=== PATIENT | female | born 2000 | race Caucasian/White ===

== ENCOUNTER 2019-09-10 02:25 | Emergency (ER) | payer OTHER, SELFPAY ==
[2019-09-10 02:34] VITALS: BP 143/87; PULSE 102; RESP 16; TEMP 36.8; O2SAT 96; BMI 23.1
--- NOTE | 2019-09-10 02:36 | HMH.EDGENADL ---
ED Disposition Clinical Impression: Viral pharyngitis, Generalized abdominal pain Disposition: Home, Self-Care Condition on Discharge: Fair Instructions: DI for Viral Pharyngitis, DI for Abdominal Pain-Adult Additional Instructions: Tylenol or ibuprofen for pain and fever. Phenergan as needed for nausea and vomiting. Off work for 2 days. Quarantine yourself until COVID-19 test results are known. Additional instructions for ABDOMINAL PAIN: See your physician as soon as possible for further evaluation. Return immediately if worsening abdominal pain, vomiting, shortness of breath, fever, vomiting of blood or abdominal distention. Referrals: Kyle Becker MD [Primary Care Provider] - Forms: Work/School Release - Critical Care Critical Care Time: No Attestation: On , the high probability of a clinically significant, sudden or life threatening deterioration of the following system(s) required my full and direct attention, intervention and personal management. The time I documented below is in addition to time spent performing reported procedures but includes the following listed in this critical care notation. Medical Decision Making - Tae Inquiry Pt receiving controlled substance: No Vital Signs: 09/10/19 02:34 Temperature 98.3 F Temperature Source Oral Pulse Rate [Right] 102 H Respiratory Rate 16 Blood Pressure [Right Arm] 143/87 H Blood Pressure Mean [Right Arm] 105 Blood Pressure Source [Right Arm] Automatic Cuff Blood Pressure Position [Right Arm] Sitting 02 Sat by Pulse Oximetry 96 Oxygen Delivery Method Room Air - Lab Data Lab Results 09/10/19 02:42: Influenza Type A Ag Negative, Influenza Type B Ag Negative 09/10/19 02:42: Group A Strep Rapid Negative 09/10/19 03:30: Urine HCG, Qual Negative 09/10/19 03:32: Urine Color Yellow, Urine Appearance Clear, Urine pH 7.0, Ur Specific [place] 1.010, Urine Protein Negative, Urine Glucose (UA) Negative, Urine Ketones Negative, Urine Blood Negative, Urine Nitrate Negative, Urine Bilirubin Negative, Urine Urobilinogen 4.0, Ur Leukocyte Esterase Negative, Ur Squamous Epith Cells 5-10, Amorphous Sediment 1+ Orders (Tests/Meds): ORDERS Category Date Time Status Strep Screen Confirmation Stat Micro 09/10/19 02:42 Received Medical Decision Narrative: The patient still complains of abdominal pain. I recommended that we do further work-up for abdominal pain including starting an IV, getting blood work, and doing a CT scan of the abdomen and pelvis. She refuses. She says she wants a note for work for a couple of days. She does consent to a COVID-19 test which will be sent. General Adult HPI - General Stated complaint: Fever,sore throat, stomach ache,headache Time Seen by Provider: 09/10/19 02:36 - History of Present Illness HPI narrative: States yesterday developed sore throat and a fever. One episode of vomiting. Rhinorrhea, but no cough. Denies earache. Has generalized abdominal pain. No dysuria. No diarrhea. No known exposures to strep or COVID-19 or other illnesses. She took Tylenol 2 hours ago. - Related Data Previous Rx's Medication Instructions Recorded Cefdinir [Omnicef 300mg Capsule] 300 mg PO BID #20 cap 04/06/18 Fluticasone Propionate [Flonase 2 spr NS DAILY #1 bottle 04/06/18 50mcg nasal spray 16gm] Ondansetron [Zofran 4mg ODT] 4 mg PO Q8HP PRN #8 tab.rapdis 04/06/18 Allergies Allergy/AdvReac Type Severity Reaction Status Date / Time amoxicillin Allergy Verified 04/06/18 15:51 [facility] History - Hepatitis A Screen Attestation statement:: This patient has been screened for Hepatitis A risk factors. I have reviewed the patient's past medical history: Yes Medical History: Denies:: Cancer, Diabetes Mellitus Type 1, Diabetes Mellitus Type 2, MRSA Laterality Cases: Bilateral: Myringotomy (Ear Tubes) Amputation: No - Social History Alcohol Intake: never Occupational Status: oth
[2019-09-10 03:05] LABS: Strep Scrn Group A (Rapid) Negative (Negative)
[2019-09-10 03:37] LABS: Microscopic, Urine URINE MICROSCOPIC (MICROSCOPIC)
[2019-09-10 03:38] LABS: Appearance,Urine CLEAR (Clear); Bilirubin,Urine Negative (Negative); Blood, Urine Negative (Negative); Color,Urine YELLOW (Yellow); Glucose,Urine (UA) Negative (Negative); Ketones,Urine Negative (Negative); Leukocyte Esterase,Urine Negative (Negative); Nitrate,Urine Negative (Negative); Protein,Urine Negative (Negative)
[2019-09-10 03:41] LABS: Amorphous Sediment,Urine 1+ /lpf
[2019-09-10 03:41] LABS: Urine Pregnancy, HCG Qual. Negative (Negative)
[2019-09-10 04:03] VITALS: BP 129/77; PULSE 86; RESP 16; TEMP 36.8; O2SAT 96
[2019-09-11 08:34] LABS: Covid-19 Nasal PCR Sendout UK Not Detected
== END 2019-09-10 04:30 | disposition home or self-care (01) ==
PROVIDERS: Emergency Provider Emergency Medicine; PCP Internal Medicine Adolescent Medicine
DX: J02.9 Acute pharyngitis, unspecified (principal); R10.84 Generalized abdominal pain
CPT/HCPCS: 81001; 81025; 87275; 87276; 87430; 99283; U0003

== ENCOUNTER 2020-09-03 14:16 | Emergency (ER) | payer SELFPAY ==
[2020-09-03 14:16] VITALS: BP 155/89; PULSE 97; RESP 20; TEMP 36.7; O2SAT 97; BMI 28.3
--- NOTE | 2020-09-03 15:20 | HMH.EDUTC ---
[facility] [place] Disposition Clinical Impression: Sinusitis Qualifiers: Sinusitis location: unspecified location Chronicity: acute Recurrence: non-recurrent Qualified Code(s): J01.90 - Acute sinusitis, unspecified Pharyngitis Qualifiers: Pharyngitis/tonsillitis etiology: unspecified etiology Qualified Code(s): J02.9 - Acute pharyngitis, unspecified Disposition: Home, Self-Care Condition on Discharge: Good Instructions: DI for Sinusitis Additional Instructions: Drink plenty of fluids. Take tylenol or ibuprofen for pain or fever. Take the medications as directed. Follow up with your regular doctor. GO TO THE ER FOR ANY WORSENING SYMPTOMS Prescriptions: Brompheniramine/Pseudoephed/Dm [Bromfed Dm Cough Syrup] 5 ml PO Q6HP PRN #240 syrup PRN Reason: Cough Transmission Status: Received by [facility] methylPREDNISolone [Medrol] 4 mg PO DIRECTED 6 Days #21 tab.ds.pk Transmission Status: Received by [facility] Azithromycin [Z-Bonifacio 250mg Tab*] 250 mg PO UD DOSE PK #6 tab Transmission Status: Received by [facility] Referrals: Kyle Becker MD [Primary Care Provider] - Forms: Work/School Release Time of Disposition: 15:25 Medical Decision Making - Medical Records Medical records reviewed: No: I reviewed the patient's medical records. - Tae Inquiry Pt receiving controlled substance: No Vital Signs: 09/03/20 14:16 09/03/20 15:33 Temperature 98.1 F 98.1 F Temperature Source Oral Pulse Rate 97 H Pulse Rate [Left Radial] 97 H Respiratory Rate 20 20 Blood Pressure 115/89 Blood Pressure [Right Arm] 155/89 H Blood Pressure Mean [Right Arm] 111 Blood Pressure Source Automatic Cuff Blood Pressure Source [Right Arm] Automatic Cuff Blood Pressure Position Sitting Blood Pressure Position [Right Arm] Sitting 02 Sat by Pulse Oximetry 97 Oxygen Delivery Method Room Air Room Air - Lab Data Lab results reviewed: Yes: I reviewed the patient's lab results. [facility] [place] HPI - General Stated complaint: sore throat, cough Time Seen by Provider: 09/03/20 14:40 Mode of Arrival: Ambulatory Source of Information: Patient Limitations: No Limitations Description of Symptoms (Recalled from Triage Doc. by RN): c/o cough, sore throat, ear ache, body ache and headache since Wednesday HEENT Symptoms (Recalled from RN notes): Yes Resp Symptoms (Recalled from RN notes): Yes Skin Symptoms (Recalled from RN notes): No MS Symptoms (Recalled from RN notes): No Functional Status (Recalled from RN notes): wnl - History of Present Illness Provider Complaint: She c/o sore throat and sinus congestion for the past 2 days. She denies fever/chills/body aches. - Related Data Previous Rx's Medication Instructions Recorded Cefdinir [Omnicef 300mg Capsule] 300 mg PO BID #20 cap 04/06/18 Fluticasone Propionate [Flonase 2 spr NS DAILY #1 bottle 04/06/18 50mcg nasal spray 16gm] Ondansetron [Zofran 4mg ODT] 4 mg PO Q8HP PRN #8 tab.rapdis 04/06/18 Azithromycin [Z-Bonifacio 250mg Tab*] 250 mg PO UD DOSE PK #6 tab 09/03/20 Brompheniramine/Pseudoephed/Dm 5 ml PO Q6HP PRN #240 syrup 09/03/20 [Bromfed Dm Cough Syrup] methylPREDNISolone [Medrol] 4 mg PO DIRECTED 6 Days #21 09/03/20 tab.ds.pk Allergies Allergy/AdvReac Type Severity Reaction Status Date / Time amoxicillin Allergy Verified 04/06/18 15:51 - Worker's Comp Is this a Worker's Comp case?: No [facility] History - Hepatitis A Screen Drug use history?: No High risk sexual behaviors?: No History of sexually transmitted infection?: No Currently employed?: No Childcare worker?: No Do you have indoor plumbing?: Yes Do you have electricity?: Yes Attestation statement:: This patient has been screened for Hepatitis A risk factors. I have reviewed the patient's past medical history: Yes Medical History: Denies:: Cancer, Diabetes Mellitus Type 1, Diabetes Mellitus Type 2, MRSA Laterality Cases: Bilateral:
[2020-09-03 15:33] VITALS: BP 115/89; PULSE 97; RESP 20; TEMP 36.7; O2SAT 97
== END 2020-09-03 15:33 | disposition home or self-care (01) ==
PROVIDERS: Emergency Provider Nurse Practitioner Family; PCP Internal Medicine Adolescent Medicine
DX: J01.90 Acute sinusitis, unspecified (principal); J02.9 Acute pharyngitis, unspecified; Z20.822 Contact with and (suspected) exposure to COVID-19
CPT/HCPCS: 99202; G0463; U0003

== ENCOUNTER 2020-11-30 16:09 | Emergency (ER) | payer SELFPAY ==
[2020-11-30 16:27] VITALS: BP 146/83; PULSE 85; RESP 16; TEMP 36.8; O2SAT 95; BMI 28.3
--- NOTE | 2020-11-30 17:02 | HMH.EDUTC ---
[facility] [place] Disposition Clinical Impression: Pain, dental, Dental abscess, Jaw pain Disposition: Home, Self-Care Condition on Discharge: Good Instructions: DI for Tooth Abscess, DI for Dental Pain Additional Instructions: Take the ibuprofen that was prescribed for pain. Take the antibiotics as prescribed. Follow up with your dentist as scheduled. Follow up with your regular doctor. GO TO THE ER FOR ANY WORSENING SYMPTOMS Prescriptions: Ibuprofen [Ibuprofen 800mg Tablet] 800 mg PO Q8HP PRN #30 tab PRN Reason: Moderate Pain Transmission Status: Received by [facility] clindamycin HCL [Clindamycin HCl] 300 mg PO Q8H 10 Days #30 cap Transmission Status: Received by [facility] Referrals: Kyle Becker MD [Primary Care Provider] - Forms: Work/School Release Time of Disposition: 17:22 Medical Decision Making - Medical Records Medical records reviewed: No: I reviewed the patient's medical records. - Tae Inquiry Pt receiving controlled substance: No Vital Signs: 11/30/20 16:27 11/30/20 17:23 Temperature 98.2 F 98.2 F Temperature Source Oral Pulse Rate 80 Pulse Rate [Radial] 85 Respiratory Rate 16 18 Blood Pressure 140/80 Blood Pressure [Right Arm] 146/83 H Blood Pressure Mean [Right Arm] 104 02 Sat by Pulse Oximetry 95 [facility] [place] HPI - General Stated complaint: dental pain Time Seen by Provider: 11/30/20 17:15 Mode of Arrival: Ambulatory Source of Information: Patient Limitations: No Limitations Description of Symptoms (Recalled from Triage Doc. by RN): CHIPPED BACK RIGHT TOOTH AND C/O PAIN HEENT Symptoms (Recalled from RN notes): Yes Resp Symptoms (Recalled from RN notes): No Skin Symptoms (Recalled from RN notes): No MS Symptoms (Recalled from RN notes): No Functional Status (Recalled from RN notes): NA - History of Present Illness Provider Complaint: She states that for the past 1 day she has been having dental pain. The tooth that is bothering her is in her right upper jaw. She states that she has had a cavity in the tooth for some time now, but she was hit in the face with a basketball and it broke the tooth. That happened 2 days ago. She has a dentist appointment on Wednesday. - Related Data Previous Rx's Medication Instructions Recorded Cefdinir [Omnicef 300mg Capsule] 300 mg PO BID #20 cap 04/06/18 Fluticasone Propionate [Flonase 2 spr NS DAILY #1 bottle 04/06/18 50mcg nasal spray 16gm] Ondansetron [Zofran 4mg ODT] 4 mg PO Q8HP PRN #8 tab.rapdis 04/06/18 Azithromycin [Z-Bonifacio 250mg Tab*] 250 mg PO UD DOSE PK #6 tab 09/03/20 Brompheniramine/Pseudoephed/Dm 5 ml PO Q6HP PRN #240 syrup 09/03/20 [Bromfed Dm Cough Syrup] methylPREDNISolone [Medrol] 4 mg PO DIRECTED 6 Days #21 09/03/20 tab.ds.pk Ibuprofen [Ibuprofen 800mg 800 mg PO Q8HP PRN #30 tab 11/30/20 Tablet] clindamycin HCL [Clindamycin HCl] 300 mg PO Q8H 10 Days #30 cap 11/30/20 Allergies Allergy/AdvReac Type Severity Reaction Status Date / Time amoxicillin Allergy Verified 04/06/18 15:51 - Worker's Comp Is this a Worker's Comp case?: No [facility] History - Hepatitis A Screen Drug use history?: No High risk sexual behaviors?: No History of sexually transmitted infection?: No Currently employed?: No Childcare worker?: No Do you have indoor plumbing?: Yes Do you have electricity?: Yes Attestation statement:: This patient has been screened for Hepatitis A risk factors. I have reviewed the patient's past medical history: Yes Medical History: Denies:: Cancer, Diabetes Mellitus Type 1, Diabetes Mellitus Type 2, MRSA Laterality Cases: Bilateral: Myringotomy (Ear Tubes) Amputation: No - Social History Smoking Status: Never smoker Alcohol Intake: never Occupational Status: employed ROS Obtained: Yes All systems reviewed & no additional complaints - Constitutional Constitutional: Denies chills, Denies fever(s) - ENT Ears, Nose, Mouth,
[2020-11-30 17:23] VITALS: BP 140/80; PULSE 80; RESP 18; TEMP 36.8; O2SAT 96
== END 2020-11-30 17:26 | disposition home or self-care (01) ==
PROVIDERS: Emergency Provider Nurse Practitioner Family; PCP Internal Medicine Adolescent Medicine
DX: K04.7 Periapical abscess without sinus (principal)
CPT/HCPCS: 99202; G0463